=== PATIENT | female | born 1965 | race Caucasian/White ===

== ENCOUNTER 2018-01-02 14:29 | Emergency (ER) | payer OTHER ==
[~2018-01-02] VITALS: Ht 160 cm; Wt 82.6 kg
--- NOTE | 2018-01-02 15:20 | ED GENERAL ADULT ---
History of Present Illness General Chief Complaint: General Adult Stated Complaint: LACK OF ENERGY, X 1.5 WEEKS Source: patient Exam Limitations: no limitations Vital Signs & Intake/Output Vital Signs & Intake/Output ED Intake and Output 01/03 0000 01/02 1200 Intake Total Output Total Balance Patient 182 lb Weight Allergies Coded Allergies: NO KNOWN ALLERGIES (09/28/14) Reconcile Medications Dexlansoprazole (Dexilant) 60 MG DONOVAN.BP 1 CAP PO DAILY GI (Reported) Levothyroxine Sodium 50 MCG TABLET 1 TAB PO DAILY AC THYROID (Reported) Simvastatin (Simvastatin*) 20 MG TABLET 1 TAB PO QPM CHOLESTEROL (Reported) Triage Note: PT TO ER C/C LACK OF ENERGY X 1 WEEK. DENIES N/V/D. DENIES C/P OR SOB. DENIES FEVERS/CHILLS. Triage Nurses Notes Reviewed? yes Onset: Gradual Duration: week(s): Timing: recent history Injury Environment: home Severity: moderate HPI: 52YO FEMALE with hx of hypothyroidism presents to ED complaining of loss of energy x 1.5 weeks. Patient states that she has been "on the go" recently with several tasks and believes things are catching up on her. Patient also reports feeling dehydrated recently. Patient has been sleeping well at night. Patient was recently diagnosed with hypothyroidism 4 months ago, started on levothyroxine at that time. Patient states that he had her thyroid level checked with her specialist last month and had no abnormality. Patient reports to recent dieting including low carbohydrates. She denies adominal pain, fevers , chills, constipation, diarrhea, depression. (Carmen Serna) Past History Travel History Traveled to [place] past 21 day No Medical History Any Pertinent Medical History? see below for history Cardiovascular: hyperlipidemia Gastrointestinal: GERD Endocrine: hypothyroidism Surgical History Surgical History: non-contributory Psychosocial History Who do you live with Patient/Self What is your primary language Romansh Tobacco Use: Never used Family History Hx Contributory? No (Carmen Serna) Review of Systems Review of Systems Constitutional: Reports: see HPI. EENTM: Reports: no symptoms. Respiratory: Reports: no symptoms. Cardiovascular: Reports: no symptoms. GI: Reports: no symptoms. Genitourinary: Reports: no symptoms. Musculoskeletal: Reports: no symptoms. Skin: Reports: no symptoms. Neurological/Psychological: Reports: no symptoms. Hematologic/Endocrine: Reports: see HPI. Immunologic/Allergic: Reports: no symptoms. All Other Systems: Reviewed and Negative (Smita CABRERA,Carmen Oliva) Physical Exam Physical Exam General Appearance: well developed/nourished, no apparent distress, alert, awake Head: atraumatic, normal appearance Eyes: Bilateral: normal appearance. Ears, Nose, Throat: hearing grossly normal Neck: normal inspection, supple, full range of motion Respiratory: normal breath sounds, no respiratory distress, lungs clear Cardiovascular: regular rate/rhythm Gastrointestinal: normal bowel sounds, soft, non-tender, no organomegaly Back: normal inspection, normal range of motion Extremities: normal inspection, normal range of motion Neurologic/Psych: awake, alert, oriented x 3 Skin: intact, normal color, warm/dry Core Measures ACS in differential dx? No CVA/TIA Diagnosis: No Sepsis Present: No Sepsis Focused Exam Completed? No (Carmen Serna) Progress Differential Diagnoses I considered the following diagnoses in my evaluation of the patient: [Anemia, electrolyte abnormality, thyroid disorder, dehydration, viral syndrome] Plan of Care: Laboratory Tests 01/02/18 1554: Anion Gap 11, Estimated GFR > 60, BUN/Creatinine Ratio 20.0, Glucose 104 H, Calcium 10.5 H, Magnesium 2.0, Total Bilirubin 0.5, AST 37 H, ALT 77 H, Alkaline Phosphatase 83, Total Protein 7.8, Albumin 4.8, Globulin 3.0, Albumin/ Globulin Ratio 1.6, TSH 0.987, Free T4 1.16, CBC w Diff NO MAN DIFF REQ, RBC 4.29, MCV 86.9, MCH 29.0, MCHC 33.4, RDW 13.7, MPV 7.9, Gran % 67.9, Lymphocytes % 23.8, Monocytes % 6.5, Eosinophils % 1.4, Basophils % 0.4, Absolute Granulocytes 5.5, Absolute Lymphocytes 1.9, Absolute Monocytes 0.5, Absolute Eosinophils 0.1, Absolute Basophils 0 Patient has no pain complaints, she is afebrile, no leukocytosis, low suspicion for acute infection at this time. Blood work is stable, no acute anemia, electrolytes are within normal limits, thyroid hormone stable. Informed of the results of her blood tests. I encouraged the patient to increase carbohydrates in her diet as this may be relevant to her recent fatigue and lack of energy. I also recommended a caffeine supplement however patient states she cannot take this related to her GERD. Patient is unhappy that there is no known reason today to explain her fatigue. Given her normal physical exam, labs, vital signs no diagnostic imaging was obtained. I encouraged the patient to follow up with her primary care doctor for repeat evaluation. Also recommended she follow up with her adjuster arbitrator given the recent hypothyroidism diagnosis. Patient was upset with wait time here in the ED and left prior to receiving discharge paperwork. Ambulatory with steady gait, no focal weakness. Initial ED EKG: none (Carmen Serna) Departure Departure Disposition: HOME OR SELF CARE Condition: Stable Clinical Impression Primary Impression: Fatigue Qualifiers: Fatigue type: unspecified Qualified Code: R53.83 - Other fatigue Referrals: Dixon Butcher MD (PCP/Family) Departure Forms: Customer Survey General Discharge Information (Carmen Serna) PA/ACCESSIONER Co-Sign Statement Statement: ED Attending supervision documentation- I saw and evaluated the patient. I have also reviewed all the pertinent lab results and diagnostic results. I agree with the findings and the plan of care as documented in the PA's/ACCESSIONER's documentation. x I have reviewed the ED Record and agree with the PA's/ACCESSIONER's documentation. [] Additions or exceptions (if any) to the PAs/ACCESSIONER's note and plan are summarized below: [] (Lidia NULL,Rivera) Critical Care Note Critical Care Note Critical Care Time: non-applicable (Carmen Serna)
[2018-01-02] MEDS ORDERED: DEXILANT60 M1 PO (15:30)
[2018-01-02] MEDS ORDERED: SIMVASTATIN20 M2 PO (15:31)
[2018-01-02] MEDS ORDERED: LEVOTHYROXINE50 MCG PO (15:31)
[2018-01-02 16:02] LABS: ABSOLUTE BASOPHIL COUNT 0 /CUMM (0.0-0.2); ABSOLUTE EOSINOPHIL COUNT 0.1 /CUMM (0.0-0.7); ABSOLUTE GRANULOCYTE CT 5.5 /CUMM (1.4-6.5); ABSOLUTE LYMPH COUNT 1.9 /CUMM (1.2-3.4); ABSOLUTE MONOCYTE COUNT 0.5 /CUMM (0.10-0.60); BASOPHIL % 0.4 % (0.0-2.0); EOSINOPHIL % 1.4 % (0-5); GRANULOCYTE % 67.9 % (42.2-75.2); HEMATOCRIT 37.3 % (37-47); MEAN CORPUSCULAR HGB CONC 33.4 G/DL (33.0-37.0); MEAN CORPUSCULAR VOLUME 86.9 FL (81.0-99.0); MEAN PLATELET VOLUME 7.9 FL (7.4-10.4); PLATELET COUNT 263 /CUMM (130-400); RBC DISTRIBUTION WIDTH 13.7 % (11.5-14.5); RED BLOOD CELL CT 4.29 /CUMM (4.20-5.40); WHITE BLOOD CELL COUNT 8.1 /CUMM (4.8-10.8)
[2018-01-02 17:49] VITALS: BP 131/83
== END 2018-01-02 18:51 ==
LOC: ERH 14:29
PROVIDERS: Physician Assistant
DX: R53.83 Other fatigue (principal)